=== PATIENT | female | born 1995 | race Hispanic/Latino ===

== ENCOUNTER → 2018-07-16 | Outpatient (REF) | payer OTHER | LOC: M LAB REF 17:37 | PROVIDERS: ATTEND Obstetrics & Gynecology | DX: Z34.83 Encounter for supervision of other normal pregnancy, third trimester (principal); Z3A.00 Weeks of gestation of pregnancy not specified ==

== ENCOUNTER 2018-07-26 01:48 | Inpatient (IN) | payer OTHER ==
[~2018-07-26] VITALS: Ht 162.6 cm; Wt 73.0 kg
[2018-07-26 01:59] VITALS: BP 121/81
[2018-07-26] MEDS ORDERED: PRENTAB9 PO (02:10)
[2018-07-26] MEDS ORDERED: [UNRECOGNIZED DRUG - CODE] XX (02:10)
[2018-07-26] MEDS ORDERED: LR 1,000 ML IV SCH (02:13)
[2018-07-26] MEDS ORDERED: OXYTOCIN 30 UNITS IN 0.9% NaCl 500ML IV BAG (J2590) As Ordered ONE (02:15)
[2018-07-26 02:29] LABS: HEMATOCRIT 32.4 % (36.0-47.0); HEMOGLOBIN 10.2 g/dl (12.0-15.5); MEAN CORPUSCULAR HEMOGLOBIN 27.2 pg (27.0-33.0); MEAN CORPUSCULAR HGB CONC 31.5 g/dl (32.0-36.5); MEAN CORPUSCULAR VOLUME 86.4 fl (80.0-96.0); PLATELET COUNT, AUTOMATED 255 10^3/uL (150-450); RED BLOOD COUNT 3.75 10^6/uL (4.00-5.40); WHITE BLOOD COUNT 10.4 10^3/uL (4.0-10.0)
[2018-07-26 02:39] LABS: CORD GAS ABE A -1.1; CORD GAS HCO3 A 25.6 MEQ/L; CORD GAS PCO2 A 50.1 mmHg; CORD GAS PH A 7.327 UNITS; CORD GAS PO2 A 15.7 mmHg; CORD GAS SBC A 21.8 MEQ/L; CORD GAS TCO2 A 27.2 MEQ/L
[2018-07-26 02:40] LABS: CORD GAS ABE V -0.8; CORD GAS HCO3 V 24.3 MEQ/L; CORD GAS O2 SAT V 57.3 %; CORD GAS PCO2 V 41.6 mmHg; CORD GAS PH V 7.384 UNITS; CORD GAS PO2 V 22.3 mmHg; CORD GAS SBC V 22.7 MEQ/L; CORD GAS TCO2 V 25.6 MEQ/L
[2018-07-26 02:56] VITALS: BP 119/81
[2018-07-26] MEDS ORDERED: OXYTOCIN DRIP 30 UNITS in APPROPRIATE DILUENT 1 EA IV SCH (03:06)
[2018-07-26] MEDS ORDERED: LIDOCAINE 1% MDV 20ML VIAL INFIL ONE (03:15)
[2018-07-26] MEDS ORDERED: DOCUSATE SODIUM 100 MG CAP PO PRN (03:15)
[2018-07-26] MEDS ORDERED: ACETAMINOPHEN 500 MG TAB PO PRN (03:15)
[2018-07-26] MEDS ORDERED: METHYLERGONOVINE MALEATE 0.2 MG TAB PO PRN (03:15)
[2018-07-26] MEDS ORDERED: DIBUCAINE 1% OINTMENT 30GM TOP PRN (03:15)
[2018-07-26] MEDS ORDERED: RHOGAM 300 MCG (1500 IU) INJ (J2790) IM SCH (03:15)
[2018-07-26] MEDS ORDERED: MEASLES,MUMPS,RUBELLA VACCINE INJ (MMR-II) (90707) SC SCH (03:15)
[2018-07-26] MEDS: IBUPROFEN 800 MG TAB PO PRN ×2 (06:34→18:26)
[2018-07-26 06:50] VITALS: BP 110/72
--- NOTE | 2018-07-26 07:09 | DN ---
DATE: 07/26/2018 Fernando is a 22-year-old 4, para 3-1-0-3 now admitted to labor and delivery in active labor as well as significant vaginal bleeding. IV access was obtained. She has history of rupture of membranes at 0223 for clear fluid. She was also fully dilated and 0223. She pushed to a normal spontaneous vaginal delivery of a live male in occiput anterior (OA) position with restitution to right occiput transverse (ROT) position at 0225. There was no nuchal cord. The 's mouth and nares were bulb suctioned and he was placed immediately to the warmer for evaluation and resuscitation. Spontaneous expulsion of intact placenta with three-vessel cord by Woods mechanism was at 0229, noted to appear placental abruption approximately 10%. Uterine hemostasis was achieved with IV Pitocin rapid infusion and uterine fundal massage. Estimated blood loss 350 mL. Perineum and vagina were inspected noted to have a right labial laceration. The laceration was infiltrated with 1% lidocaine and repaired with #3-0 Rapide in interrupted sutures. male weighed 3180 grams, 7 pounds, 6 and 8. Mother is going to breastfeed her son. At the close of delivery lap counts, needle counts and instrument counts were correct and verified.
--- NOTE | 2018-07-26 07:11 | HPE ---
DATE OF ADMISSION: 07/26/2018 Fernando is a 22-year-old, 4, para 3-1-0-3, with an expected date of confinement (EDC) of 08/12/2018 based on 10-week ultrasound. She presents to labor and delivery today with report of onset of uncomfortable contractions at 1700. On 07/25/2018 following taking castor oral by mouth at 1600, she reports that the contractions became much closer together and she had a sudden gush of a large blood clot the size of the palm of her hand at 0100. She denies vaginal leaking. She reports rectal pressure at this time. The fetus has been active. Her care was initiated at an alternate provider [place] of [place] with a late transfer to care at 36-1/7 weeks to [facility]. Her course has been complicated by a history of a severe delivery in September 2007 due to a placenta previa and abruption at 26 weeks, the fetus at 9 days old from necrotizing enterocolitis. OBSTETRICAL HISTORY: March 2012, 40 weeks gestation, 7 pounds 10 ounces female, spontaneous vaginal delivery, no complications. February 2014, 40 weeks, 8 pounds 8 ounces male, spontaneous vaginal delivery, no complications. September 2017, 26-6/7 weeks spontaneous vaginal delivery following placenta previa, placental abruption and labor, fetus at 9 days old. OBSTETRIC LABS: B+. Antibody screen negative. Rubella immune. VDRL nonreactive. Urine culture no growth. Hepatitis B surface antigen negative. HIV negative. Gonorrhea and chlamydia negative. Gestational diabetic screening normal at 118. GBS positive. Quad screen negative. PAST MEDICAL HISTORY: History of blood transfusion following the last delivery in 2015. Childhood varicella. SURGERIES: Breast augmentation. Tonsillectomy. FAMILY HISTORY: Noncontributory. SOCIAL HISTORY: The patient is . Her is at bedside and supportive. She is a nonsmoker. Denies alcohol and drug use. She does have a history of chlamydia in 2011. Denies history of abuse - physical, sexual and emotional. ALLERGIES: No known drug allergies. CURRENT MEDICATIONS: - vitamin - Unisom sleep tablets OBJECTIVE: Upon arrival, the patient appears uncomfortable. Her temperature is 97.3, pulse 83 and blood pressure is 121/81. The heart rate is 135 with moderate variability, positive accelerations noted and some late decelerations following contractions. Contractions are every 2-4 minutes. She is sitting in a large amount of dark red blood. Sterile Vaginal Exam: 8 cm dilated, 100% effaced, 0 station, bulging bag of water. ASSESSMENT: Intrauterine at 37-4/7 weeks. heart rate is category II. Active labor. Likely placental abruption. PLAN: Admit the patient to labor and delivery. IV access with lactated Ringer's. Routine labs. Plan to rupture membranes to expedite delivery due to the vaginal bleeding. I do anticipate continued labor progress and a vaginal delivery.
[2018-07-26] MEDS: PRENATAL VITAMINS CHEWABLE TABLET PO SCH (11:54)
[2018-07-26 18:00] VITALS: BP 118/78
[2018-07-27 06:07] VITALS: BP 101/66
[2018-07-27] MEDS ORDERED: MAPA500T2 PO (08:03)
[2018-07-27] MEDS ORDERED: IBUP-1114 PO (08:03)
[2018-07-27] MEDS: PRENATAL VITAMINS CHEWABLE TABLET PO SCH (08:34)
== END 2018-07-27 11:35 | disposition home or self-care (01) | DRG 807 ==
LOC: M LDO 01:48 → M LDI 02:13 → M OBS 06:43
PROVIDERS: ADMIT Advanced Practice Midwife; ATTEND Advanced Practice Midwife
PROC: 10E0XZZ Delivery of Products of Conception, External Approach (ICD-10-PCS; principal; 2018-07-26)
PROC: 0HQ9XZZ Repair Perineum Skin, External Approach (ICD-10-PCS; 2018-07-26)
DX: O45.93 Premature separation of placenta, unspecified, third trimester (principal); Z37.0 Single live birth; Z3A.37 37 weeks gestation of pregnancy; O99.824 Streptococcus B carrier state complicating childbirth; O70.0 First degree perineal laceration during delivery

== ENCOUNTER 2018-12-26 10:31 | Emergency (ER) | payer OTHER ==
[~2018-12-26] VITALS: Ht 162.6 cm; Wt 61.4 kg
[~2018-12-26 10:31] MED LIST: IBUP-1114 PO; MAPA500T2 PO; PRENTAB9 PO; [UNRECOGNIZED DRUG - CODE] XX
[2018-12-26 10:32] VITALS: BP 116/77
== END 2018-12-26 11:25 | disposition home or self-care (01) ==
LOC: M ED 10:31
DX: J06.9 Acute upper respiratory infection, unspecified (principal)

== ENCOUNTER → 2019-05-30 | Outpatient (CLI) | payer OTHER ==
--- NOTE | 2019-05-31 04:15 | REP ---
Clinical: Dating and viability. Technique: Transabdominal and transvaginal first trimester obstetrical ultrasound with color Doppler evaluation. Findings: Ultrasound examination demonstrates anteverted uterus measuring 9.8 x 5.5 x 7.6 cm. Gestational sac with mean sac diameter 3.8 mm corresponds to 5 weeks 1 day gestational age. No intrauterine currently identified. A small presumed subchorionic hemorrhage is noted measuring 3.0 x 1.2 x 1.7 cm. The bilateral maternal ovaries are normal in appearance and vascularity. Right ovary measures 3.3 x 1.9 x 2.3 cm (RI 0.53). Left ovary measures 3.5 x 3.0 x 3.8 cm (RI 0.60) and includes 2.5 cm corpus luteal cyst. No pelvic fluid or adnexal mass lesion. Impression: Possible early intrauterine . Small subchorionic hemorrhage. Follow-up serial HCG levels recommended. Repeat ultrasound as necessary. Electronically Signed by Dallas Arellano MD 05/31/2019 04:06 A
== END ==
LOC: M RAD 09:45
PROVIDERS: ATTEND Physician Assistant
DX: Z36.9 Encounter for antenatal screening, unspecified (principal); Z32.01 Encounter for pregnancy test, result positive; Z3A.01 Less than 8 weeks gestation of pregnancy

== ENCOUNTER 2019-07-15 13:10 | Emergency (ER) | payer OTHER ==
[~2019-07-15] VITALS: Ht 162.6 cm; Wt 65.1 kg
[2019-07-15 13:56] LABS: BASO % 0.6 % (0.0-1.0); EOS # 0.1 10^3/uL (0.0-0.5); EOS % 1.3 % (0.0-3.0); HEMATOCRIT 32.1 % (36.0-47.0); HEMOGLOBIN 10.8 g/dl (12.0-15.5); LYMPH # 2.2 10^3/uL (1.5-5.0); LYMPH % 41.4 % (24.0-44.0); MEAN CORPUSCULAR HEMOGLOBIN 30.4 pg (27.0-33.0); MEAN CORPUSCULAR HGB CONC 33.6 g/dl (32.0-36.5); MEAN CORPUSCULAR VOLUME 90.4 fl (80.0-96.0); MONO # 0.4 10^3/uL (0.0-0.8); MONO % 7.1 % (0.0-5.0); NEUTROPHILS # 2.6 10^3/uL (1.5-8.5); NEUTROPHILS % 49.2 % (36.0-66.0); PLATELET COUNT, AUTOMATED 319 10^3/uL (150-450); RED BLOOD COUNT 3.55 10^6/uL (4.00-5.40); WHITE BLOOD COUNT 5.2 10^3/uL (4.0-10.0)
[2019-07-15 14:09] LABS: BLOOD UREA NITROGEN 8 MG/DL (7-18); CARBON DIOXIDE LEVEL 22 MEQ/L (21-32); CHLORIDE LEVEL 110 MEQ/L (98-107); GLOMERULAR FILTRATION RATE > 60.0 (>60); GLUCOSE, FASTING 81 MG/DL (70-100); HCG, SERUM QUANTITATIVE 193 MIU/ML; POTASSIUM SERUM 3.8 MEQ/L (3.5-5.1); SODIUM LEVEL 140 MEQ/L (136-145)
--- NOTE | 2019-07-15 15:14 | REP ---
First trimester obstetric ultrasound for vaginal bleeding, stat request: The uterus is anteverted and mildly enlarged measuring 10.2 x 4.9-6.9 cm. There is no intrauterine gestational sac identified at this time. Right ovary: Right ovary measures 3.2 x 1.2 x 3.0 cm. And is normal size. There is a para ovarian cyst measuring 1.8 x 1.3 x 1.0 cm. With Doppler assessment there is vascular flow in the right ovary. Left ovary: Left ovary measures 3 x 1 x 1 when 7 x 3.3 cm and is normal size. There is a dominant follicle measuring 1.9 x 1.5 x 1.4 cm. With Doppler assessment there is vascular flow in the left ovary. There is a small volume of free fluid in the pelvis. There is a tiny volume of free fluid within the endometrial canal. Impression: There is no identifiable intrauterine gestation at this time. This is nonspecific and could represent an early gestation not yet visible by ultrasound, spontaneous or ectopic gestation. There is a para ovarian cyst in the right adnexa and there is a dominant follicle in the left ovary. Follow-up is recommended. Electronically Signed by Nhan Jorge MD 07/15/2019 03:06 P
[2019-07-15 15:26] VITALS: BP 117/74
[2019-07-15 16:12] LABS: CHLAMYDIA DNA AMPLIFICATION NEGATIVE (NEGATIVE); GC DNA AMPLIFICATION NEGATIVE (NEGATIVE)
== END 2019-07-15 15:29 | disposition home or self-care (01) ==
LOC: M ED 13:10
DX: O20.0 Threatened abortion (principal); Z32.01 Encounter for pregnancy test, result positive; O20.8 Other hemorrhage in early pregnancy; O26.899 Other specified pregnancy related conditions, unspecified trimester; O99.019 Anemia complicating pregnancy, unspecified trimester; Z3A.00 Weeks of gestation of pregnancy not specified; O34.80 Maternal care for other abnormalities of pelvic organs, unspecified trimester

== ENCOUNTER → 2019-07-17 | Outpatient (CLI) | payer OTHER | LOC: M LAB 14:47 | PROVIDERS: ATTEND Physician Assistant | DX: Z33.1 Pregnant state, incidental (principal) ==

== ENCOUNTER → 2019-10-15 | Outpatient (REF) | payer OTHER ==
[2019-10-15 21:15] LABS: CHLAMYDIA DNA AMPLIFICATION NEGATIVE (NEGATIVE); GC DNA AMPLIFICATION NEGATIVE (NEGATIVE)
== END ==
LOC: M SFHCWAGY 17:00
PROVIDERS: ATTEND Advanced Practice Midwife
DX: Z11.3 Encounter for screening for infections with a predominantly sexual mode of transmission (principal)
CPT/HCPCS: 87491; 87591; G0463

== ENCOUNTER → 2019-11-27 | Outpatient (CLI) | payer OTHER ==
--- NOTE | 2019-11-27 14:42 | REP ---
Clinical: Anatomical evaluation. Comparison: 07/15/2019 . Findings: Examination demonstrates a single live intrauterine in cephalic presentation. motion is identified by technologist. Placenta is noted posterior and grade I without evidence for placenta previa or abruption. Amniotic fluid volume is normal. Cervix measures 4.6 cm in length and appears closed. No evidence for nuchal cord. Gestational age by LMP 19 weeks 0 days with RAPHAEL 04/22/2020 . Gestational age by current measurements 18 weeks 0 days with RAPHAEL 04/29/2020 . FHR equals 149 beats per minute. BPD 4.0 cm 18 weeks 0 days HC 15.2 cm 18 weeks 1 day AC 12.5 cm 18 weeks 1 day FL 2.6 cm 18 weeks 0 days HL 2.7 cm 18 weeks 4 days HC/AC ratio 1.22 Estimated weight 222 grams ( 15th percentile). Anatomical assessment demonstrates normal structures including cranium, choroid plexus, cavum, cerebellum/posterior fossa, facial features, lungs, four-chamber heart/ventricular outflow tracts, diaphragm, stomach, cord insertion/three-vessel cord, kidneys/bladder, spine, and extremities. Impression: Single live intrauterine in cephalic presentation demonstrating appropriate interval growth and estimated weight. Anatomical assessment is complete and normal. No gross abnormalities are identified. Electronically Signed by Dallas Arellano MD 11/27/2019 02:33 P
== END ==
LOC: M WHC 13:25
PROVIDERS: ATTEND Advanced Practice Midwife
DX: Z34.82 Encounter for supervision of other normal pregnancy, second trimester (principal); Z3A.19 19 weeks gestation of pregnancy

== ENCOUNTER → 2020-02-11 | Outpatient (CLI) | payer OTHER ==
[2020-02-11 17:11] LABS: HEMATOCRIT 27.5 % (36.0-47.0); HEMOGLOBIN 8.7 g/dl (12.0-15.5); MEAN CORPUSCULAR HEMOGLOBIN 27.5 pg (27.0-33.0); MEAN CORPUSCULAR HGB CONC 31.6 g/dl (32.0-36.5); PLATELET COUNT, AUTOMATED 297 10^3/uL (150-450); RED BLOOD COUNT 3.16 10^6/uL (4.00-5.40); WHITE BLOOD COUNT 9.3 10^3/uL (4.0-10.0)
== END ==
LOC: M PLALAB 14:47
PROVIDERS: ATTEND Obstetrics & Gynecology
DX: Z34.82 Encounter for supervision of other normal pregnancy, second trimester (principal)

== ENCOUNTER → 2020-03-06 | Outpatient (CLI) | payer OTHER ==
--- NOTE | 2020-03-06 14:41 | REP ---
INDICATION: SIZE/DATE DISCREPANCY. COMPARISON: 11/27/2019 TECHNIQUE: Routine ultrasound technique used. FINDINGS: LMP = 32 weeks 2 days, RAPHAEL(LMP) = 04/27/2020 Expected most recent sono = 32 weeks days, RAPHAEL (expected) = 04/29/2020 Today's sono findings = 33 weeks 4 days, RAPHAEL (today's sono) = 04/20/2020 Number: 1 Position: Cephalic Heart Rate: 139 BPM S/D Ratio: Placental Position: Posterior grade 1 Amniotic Fluid Volume: JUSTEN: 15.6 JUSTEN: Normal Range: 8.5-24.3 cm Cervix Length 3.2 cm, and MEASUREMENTS: BPD: 8.3 cm 33 week 1 day HC: 31 cm 34 weeks 4 day AC: 30.3 cm 34 week 2 day FL: 6.1 cm 32 weeks 4 days Estimated Weight: 2269 grams 83rd percentile IMPRESSION: 1. Single intrauterine gestation in cephalic position with grade 1 posterior placenta, not low lying. 2. Visually normal amniotic fluid volume. heart rate 139. 3. Normal interval growth. <Electronically signed by Harjeet Varma > 03/06/20 [id number]
== END ==
LOC: M WHC 13:13
PROVIDERS: ATTEND Advanced Practice Midwife
DX: O26.843 Uterine size-date discrepancy, third trimester (principal); Z3A.33 33 weeks gestation of pregnancy

== ENCOUNTER → 2020-03-31 | Outpatient (REF) | payer OTHER | LOC: M SFHCWAGY 13:13 | PROVIDERS: ATTEND Advanced Practice Midwife | DX: Z3A.35 35 weeks gestation of pregnancy (principal); Z34.83 Encounter for supervision of other normal pregnancy, third trimester | CPT/HCPCS: 87081; G0463 ==

== ENCOUNTER 2020-04-11 20:37 | Inpatient (IN) | payer OTHER ==
[~2020-04-11] VITALS: Ht 162.6 cm; Wt 73.8 kg
[2020-04-11 20:50] VITALS: BP 118/70
[2020-04-11 20:53] VITALS: BP 120/73
[2020-04-11] MEDS ORDERED: PRENTAB9 PO (20:53)
[2020-04-11 22:11] VITALS: BP 112/72
[2020-04-11 23:28] VITALS: BP 128/70
[2020-04-12] VITALS (48 sets, daily range): BP systolic 88–124; BP diastolic 50–77
--- NOTE | 2020-04-12 01:01 | HPEPDOC ---
Obstetrical History & Physical General Date of Admission Apr 12, 2020 at 00:30 History of Present Illness 24-year-old G6, P3113 at 37+4 weeks gestation. Presents with frequent, painful uterine contractions over the past several hours. Denies any loss of fluid or vaginal bleeding. Reports regular movement. ROS: no SEWELL, cp, sob, fever/chills/nausea/vomiting. 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 26 week PTB. SAB x 1 Sochx: No tobacco, alcohol or drug use FamHx: mgm breast CA, HTN, DM2 labs: Blood type B+, antibody screen negative, HepBsAg neg, HIV neg, rubella immune, Hep C antibody negative, RPR nonreactive, CT/GC neg, urine culture negative, 1 hour glucose challenge test 124 , GBS negative Imaging: US reveals normal anatomy and no placental abnormalities. Past Medical History Allergies Coded Allergies: No Known Allergies (Unverified , 07/26/18) Medications Scheduled No.137/Iron/Folic Acd ( Vitamin Tablet) 1 Each Tablet, 1 TAB PO DAILY Physical Examination Physical Examination GENERAL: Alert and oriented times three. BREAST: . ABDOMEN: Gravid and non-tender to touch. FETUS: Is vertex (VTX) by sterile vaginal examination (SVE), fetus is vertex (VTX) by Óscar. HEART RATE: Regular rate and rhythm. LUNGS: Clear to auscultation (CTA). EXTREMITIES: No edema. No clonus. Deep tendon reflexes (DTRs) 2+ SVE: changed from 3cm/50%/-3 to 5cm/75/-2, cephalic, bulging membranes, and intact. Small amount of bloody show. EFM: Cat I TOCO: ctxs every 2-5min Vital Signs/I&O Vital Signs Date Time Temp Pulse Resp B/P (MAP) Pulse Ox O2 Delivery O2 Flow Rate FiO2 04/11/20 23:28 99 16 128/70 (89) 04/11/20 20:50 97.1 Laboratory Data 24H LABS Laboratory Tests 2 04/12/20 00:33: Serology Scanned Report Hepatitis B Testing Assessment/Plan Assessment 24yo at 37+4 weeks in early active labor . Reassuring maternal and status. Plan Admit and orient. 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 Labs and intravenous (IV) per unit protocol. Anticipate [normal spontaneous delivery ()]. C-S as appropriate. Requesting epidural. LISSETH FOLEY DO Apr 12, 2020 01:01
[2020-04-12] MEDS ORDERED: LACTATED RINGER'S 1000 ML IV STA (01:02)
[2020-04-12] MEDS ORDERED: FENTANYL 2MCG/ML ROPIVACAINE 0.2% IN 0.9% NACL 100ML IVBAG As Ordered ONE (01:39)
[2020-04-12 01:43] LABS: HEMATOCRIT 28.2 % (36.0-47.0); HEMOGLOBIN 8.4 g/dl (12.0-15.5); MEAN CORPUSCULAR HEMOGLOBIN 24.5 pg (27.0-33.0); MEAN CORPUSCULAR HGB CONC 29.8 g/dl (32.0-36.5); MEAN CORPUSCULAR VOLUME 82.2 fl (80.0-96.0); PLATELET COUNT, AUTOMATED 329 10^3/uL (150-450); RED BLOOD COUNT 3.43 10^6/uL (4.00-5.40); WHITE BLOOD COUNT 9.2 10^3/uL (4.0-10.0)
[2020-04-12] MEDS: LR 1,000 ML IV SCH ×2 (01:59→07:23)
[2020-04-12] MEDS ORDERED: REFRIGERATOR IV KEYS XX PRN (02:00)
[2020-04-12] MEDS ORDERED: LACTATED RINGER'S 1000 ML IV PRN (02:00)
[2020-04-12] MEDS ORDERED: EPIDURAL COMMENT XX SCH (02:00)
[2020-04-12] MEDS ORDERED: EPIDURAL/PCA KEYS XX PRN (02:00)
[2020-04-12] MEDS ORDERED: ONDANSETRON 4MG/2ML VIAL IV PRN ×2 (02:00→13:30)
[2020-04-12] MEDS ORDERED: NALOXONE INJ 0.4MG/1ML VIAL (J2310 PER 1MG) IV PRN (02:00)
[2020-04-12] MEDS ORDERED: diphenhydrAMINE 50MG/ML VIAL (J1200) IV PRN (02:00)
[2020-04-12] MEDS: FENTANYL/ROPIVACAINE/NACL BAG 100 ML EPIDURAL SCH ×2 (02:31→11:02)
[2020-04-12] MEDS: ePHEDrine SULFATE 25 MG/5 ML(5MG/ML) SYRINGE IV PRN ×3 (03:51→07:43)
[2020-04-12] MEDS ORDERED: OXYTOCIN 30 UNITS IN 0.9% NaCl 500ML IV BAG (J2590) As Ordered ONE ×2 (10:03→13:37)
--- NOTE | 2020-04-12 10:04 | IPNPDOC ---
Obstetrical Progress Note Date of Service Apr 12, 2020 Subjective Patient comfortable with epidural. No VB/LOF. Objective Vital Signs Date Time Temp Pulse Resp B/P (MAP) Pulse Ox O2 Delivery O2 Flow Rate FiO2 04/12/20 09:14 85 16 97/61 (73) 04/12/20 07:25 97.3 Assessment Heart Rate Tracing: Category I Tocometer Contractions: Yes Frequency: every 3-7 min. Sterile Vaginal Examination Dilation: 8 cm Effacement (%): 90% Station: -1, 0 Cervical Consistency: Soft Cervical Position: Anterior (AROM clear) Assessment and Plan Status: Reassuring Anticipate: Vaginal Delivery Additional Comments Active labor; slightly protracted after epidural but making cervical change. Reassuring maternal and status. LISSETH FOLEY DO Apr 12, 2020 10:04
[2020-04-12] MEDS ORDERED: OXYTOCIN DRIP 30 UNITS in IV 1 EA IV SCH ×2 (11:00→14:00)
[2020-04-12] MEDS ORDERED: LR 1,000 ML IV SCH (13:29)
[2020-04-12] MEDS ORDERED: ACETAMINOPHEN TAB 650MG DOSE (2X325MG) PO PRN (13:30)
[2020-04-12] MEDS ORDERED: DOCUSATE SODIUM 100MG CAPSULE PO PRN (13:30)
[2020-04-12] MEDS ORDERED: IBUPROFEN 600MG TAB PO PRN (13:30)
[2020-04-12] MEDS ORDERED: RHOGAM 300 MCG (1500 IU) INJ (J2790) IM SCH (13:30)
[2020-04-12] MEDS ORDERED: MEASLES,MUMPS,RUBELLA VACCINE INJ (MMR-II) (90707) SC SCH (13:30)
[2020-04-12] MEDS ORDERED: BENZOCAINE 20% HEMORRHOIDAL OINTMENT 28GM TUBE TOP PRN (13:30)
[2020-04-12] MEDS ORDERED: PROMETHAZINE 25 MG TAB PO PRN (13:30)
--- NOTE | 2020-04-12 13:35 | DNPDOC ---
[facility] Delivery Note Delivery Note DATE OF DELIVERY: 04/12/2020 TIME OF DELIVERY: 1304 Spontaneous vaginal delivery. TEMPLATE REPRODUCTION TECHNICIAN: Dr. Keith Butts DO FACOG ANESTHESIA: Epidural. LACERATION: None ESTIMATED BLOOD LOSS: 200 mL. FINDINGS: 7 pound 15 ounce (3600g) male infant, Score, 9 and 9. DELIVERY SUMMARY: The active phase and second stage of labor progressed in normal fashion.. She received Pitocin augmentation during the latter portion of the active phase and second stage. Epidural had been placed and was functioning well, but had protracted the labor course. The head delivered in the KEISHA position, and restituted ROT. No nuchal cord was noted. The anterior shoulder delivered with gentle downward guidance and the remainder of the body delivered with ease. The baby was placed on the patient's chest. Delayed cord clamping occurred for approximately 1 minute. The cord was then doubly clamped and cut. IV Pitocin was bolused to actively manage the third stage of labor. The placenta delivered intact without any difficulty within 10 minutes of delivery. The uterine fundus was noted to be firm and 2 cm below the umbilicus. The cervix, vagina, vulva and perineum were inspected.. No laceration was noted. Excellent hemostasis was noted. Sponge, needle and instrument counts were correct per protocol. DO SONAM Orozco JONATHAN R. DO Apr 12, 2020 13:35
[2020-04-12] MEDS ORDERED: OXYTOCIN DRIP 30 UNITS in IV 1 EA IV ONE (14:30)
[2020-04-12] MEDS ORDERED: SLF 3 ML SYR IV PRN (16:15)
[2020-04-12] MEDS: IBUPROFEN 800 MG TAB PO PRN (17:51)
[2020-04-12] MEDS: SLF 3 ML SYR IV SCH (23:13)
[2020-04-12] MEDS: ACETAMINOPHEN 500 MG TAB PO PRN (23:17)
[2020-04-13] MEDS: IBUPROFEN 800 MG TAB PO PRN ×2 (03:08→14:58)
[2020-04-13 05:44] VITALS: BP 109/69
[2020-04-13] MEDS: SLF 3 ML SYR IV SCH (05:46)
[2020-04-13] MEDS: ACETAMINOPHEN 500 MG TAB PO PRN ×2 (05:46→16:37)
[2020-04-13] MEDS ORDERED: PRENATAL VITAMINS CHEWABLE TABLET PO SCH (09:00)
--- NOTE | 2020-04-13 10:10 | IPNPDOC ---
Progress Note Date of Service: Apr 13, 2020 Day#: 1 Progress Note SUBJECT: Status post . She has been ambulating, voiding spontaneously without issue and tolerating regular diet. Lochia decreasing/minimal. Patient is ambulating well. OBJECTIVE: VITAL SIGNS: Within normal limits, afebrile. Alert and oriented times three. Abdomen: Fundus firm at U-2. Soft, NTTP. ASSESSMENT: Status post uncomplicated spontaneous vaginal delivery. Vitals within normal limits, afebrile, hemodynamically stable with no evidence of infection. PLAN: Discharge to home today. Tylenol and Motrin for pain. Routine instructions/precautions reviewed. Routine PP visit in 6 weeks in clinic. VS, I&O, 24H, Fishbone Vital Signs/I&O Vital Signs Date Time Temp Pulse Resp B/P (MAP) Pulse Ox O2 Delivery O2 Flow Rate FiO2 04/13/20 05:44 98.7 74 18 109/69 (82) 04/12/20 18:00 98 Room Air I&O- Last 24 Hours up to 6 AM 04/13/20 06:00 Intake Total 2480.0 ml Output Total 2125 ml Balance 355.0 ml LISSETH FOLEY DO Apr 13, 2020 10:10
== END 2020-04-13 17:30 | disposition home or self-care (01) | DRG 807 ==
LOC: M LDO 20:37 → M LDI 04-12 00:30 → M OBS 04-12 15:10
PROVIDERS: ADMIT Obstetrics & Gynecology; ATTEND Obstetrics & Gynecology
PROC: 10E0XZZ Delivery of Products of Conception, External Approach (ICD-10-PCS; principal; 2020-04-12)
PROC: 10907ZC Drainage of Amniotic Fluid, Therapeutic from Products of Conception, Via Natural or Artificial Opening (ICD-10-PCS; 2020-04-12)
DX: O80 Encounter for full-term uncomplicated delivery (principal); Z37.0 Single live birth; Z3A.37 37 weeks gestation of pregnancy

== ENCOUNTER → 2020-08-04 | Outpatient (REF) | payer OTHER ==
[2020-08-04 20:39] LABS: CHLAMYDIA DNA AMPLIFICATION NEGATIVE (NEGATIVE); GC DNA AMPLIFICATION NEGATIVE (NEGATIVE)
== END ==
LOC: M SFHCWAGY 17:06
PROVIDERS: ATTEND Obstetrics & Gynecology
DX: Z12.4 Encounter for screening for malignant neoplasm of cervix (principal); Z11.3 Encounter for screening for infections with a predominantly sexual mode of transmission

== ENCOUNTER → 2021-02-09 | Outpatient (CLI) | payer OTHER ==
[2021-02-09 15:39] LABS: HEMATOCRIT 37.3 % (36.0-47.0); HEMOGLOBIN 12.6 g/dl (12.0-15.5); MEAN CORPUSCULAR HEMOGLOBIN 30.7 pg (27.0-33.0); MEAN CORPUSCULAR HGB CONC 33.8 g/dl (32.0-36.5); MEAN CORPUSCULAR VOLUME 90.8 fl (80.0-96.0); PLATELET COUNT, AUTOMATED 306 10^3/uL (150-450); RED BLOOD COUNT 4.11 10^6/uL (4.00-5.40); WHITE BLOOD COUNT 7.5 10^3/uL (4.0-10.0)
[2021-02-09 17:12] LABS: GC DNA AMPLIFICATION NEGATIVE (NEGATIVE)
[2021-02-09 19:45] LABS: HEPATITIS B SURFACE ANTIGEN NEGATIVE (NEGATIVE); HEPATITIS C VIRUS ABY INDEX 0.1 INDEX (<0.8); HIV 1&2 SCREEN CENTAUR NEGATIVE (NEGATIVE)
== END ==
LOC: M PLALAB 13:14
PROVIDERS: ATTEND Obstetrics & Gynecology
DX: Z34.91 Encounter for supervision of normal pregnancy, unspecified, first trimester (principal)
CPT/HCPCS: 36415; 85027; 86762; 86780; 86803; 86850; 86900; 86901; 87088; 87340; 87389; 87491; 87591; G0463

== ENCOUNTER → 2021-03-26 | Outpatient (CLI) | payer OTHER ==
--- NOTE | 2021-03-26 12:28 | REP ---
INDICATION: ENCOUNTR FOR PREG EXAMINATION IN 2ND TRI COMPARISON: None. TECHNIQUE: Transabdominal obstetrical ultrasound with color Doppler evaluation. FINDINGS: Examination demonstrates a single live intrauterine in variable presentation. motion is identified by technologist. Placenta is noted anterior and grade 1 without evidence for placenta previa or abruption. Amniotic fluid volume is normal. Cervix measures 4.7 cm in length and appears closed.. Selected gestational age: 18 weeks 6 days with RAPHAEL 08/21/2021. Gestational age by current measurements 19 weeks 2 days with RAPHAEL 08/18/2021. FHR equals 156 beats per minute. Estimated weight 289 grams (76thpercentile). Anatomical assessment demonstrates normal structures including cranium, choroid plexus, cavum, cerebellum/posterior fossa, facial features, lungs, four-chamber heart/ventricular outflow tracts, diaphragm, stomach, cord insertion/three-vessel cord, kidneys/bladder, spine, and extremities. IMPRESSION: Single live intrauterine in variable presentation demonstrating appropriate estimated weight and growth. Anatomical assessment is complete and normal. <Electronically signed by Dallas Arellano > 03/26/21 [id number]
== END ==
LOC: M WHC 11:05
PROVIDERS: ATTEND Obstetrics & Gynecology
DX: Z34.92 Encounter for supervision of normal pregnancy, unspecified, second trimester (principal)

== ENCOUNTER → 2021-06-15 | Outpatient (CLI) | payer OTHER ==
[2021-06-15 13:37] LABS: HEMATOCRIT 32.6 % (36.0-47.0); HEMOGLOBIN 10.6 g/dl (12.0-15.5); MEAN CORPUSCULAR HGB CONC 32.5 g/dl (32.0-36.5); MEAN CORPUSCULAR VOLUME 89.3 fl (80.0-96.0); PLATELET COUNT, AUTOMATED 300 10^3/uL (150-450); RED BLOOD COUNT 3.65 10^6/uL (4.00-5.40); WHITE BLOOD COUNT 9.8 10^3/uL (4.0-10.0)
== END ==
LOC: M PLALAB 10:04
PROVIDERS: ATTEND Obstetrics & Gynecology
DX: Z34.92 Encounter for supervision of normal pregnancy, unspecified, second trimester (principal)